=== PATIENT | female | born 1970 | race Caucasian/White ===

== ENCOUNTER → 2016-09-29 | Day surgery (SDC) | payer OTHER ==
[~2016-09-29] VITALS: Ht 160 cm; Wt 70.3 kg
[~2016-09-29] MED LIST: BENICAR HCT 12.1 TA2 PO; BENICAR20 M1 PO; IBUPROFEN800 MG PO; MULTI-DAY VITA1 EACH PO; PERCOCET 325 MG1 TA2 PO; PRILOSEC OTC20 M1 PO; PRILOSEC OTC20 MG PO; VITAMIN D1000 UNIT PO
--- NOTE | 2016-10-06 14:58 | Operative Report ---
See Addendum Operative/Inv Procedure Report Surgery Date: 10/06/16 Name of Procedure: Cold knife cone ECC Pre-Operative Diagnosis: Abnormal Pap LSIL Post-Operative Diagnosis: Same Estimated Blood Loss: less than 50ml Surgeon/Bilingual Trainer: RODRICK FRAZIER,DASIA Bhatt Anesthesia: moderate sedation Operative/Procedure Note Note: Procedure note patient was taken the operating room placed prone position after adequate anesthesia patient placed in dorsolithotomy position the vagina was prepped and draped so fashion bladder was catheterized at this point Lugol's placed on the cervix's the areas that was nonstaining consistent with the abnormal Paps in the past a stay suture at 3 and 9 on cervix entered bluntly with 0 Vicryl at this point with a knife. The cervix was removed and conelike fashion the base of the cone was reapproximated using 0 hemostasis was achieved using rollerball technique prior to Bovie coagulation an ECC was performed on that area at the cervix 2 specimen sent to pathology patient tolerated this well cervix was reapproximated using 0 hemostasis was apparent at the end the case on Vicente had been applied to the cervix patient tolerated that well on since removed from the vagina patient was returned spine position she was awakened from anesthesia and transported recovery room awake and alert with counts correct
== END ==
LOC: STS 01:48
DX: R87.612 Low grade squamous intraepithelial lesion on cytologic smear of cervix (LGSIL) (principal); N72 Inflammatory disease of cervix uteri; K21.9 Gastro-esophageal reflux disease without esophagitis
CPT/HCPCS: 88305; 88307; J0694; J2250